=== PATIENT | female | born 1985 | race Caucasian/White ===

== ENCOUNTER 2023-12-05 10:17 | Outpatient (CLI) | payer OTHER, SELFPAY | END 2023-12-05 10:18 | disposition home or self-care (01) | PROVIDERS: PCP Family Medicine; Visit Provider Obstetrics & Gynecology | DX: R63.5 Abnormal weight gain (principal); Z13.29 Encounter for screening for other suspected endocrine disorder | CPT/HCPCS: 80053; 80061; 82306; 84443 ==

== ENCOUNTER 2023-12-17 09:34 | Outpatient (CLI) | payer OTHER, SELFPAY ==
--- NOTE | 2023-12-17 09:45 | MM_ITS ---
Patient: JOVON BLANCA Facility:?[facility] Patient ID:?[id number] Site Patient ID:?[id number]. Site :?1985 Study:?XRay-Breast Bilateral 3D W/CAD-12/17/2023 10:15:24 AM Ordering Physician:?Chela Tse Final Report: DIGITAL DIAGNOSTIC BILATERAL MAMMOGRAM USING TOMOSYNTHESIS AND COMPUTER-AIDED DETECTION RIGHT BREAST ULTRASOUND CLINICAL HISTORY: RIGHT breast pain, lump. COMPARISON: 12/12/2017. TECHNIQUE: Digital BILATERAL mammogram in four projections. Tomosynthesis and CAD utilized. Real-time ultrasound imaging of RIGHT breast with imaging documentation. Scanning was performed by both the technologist and the radiologist. BREAST COMPOSITION: The breasts are heterogeneously dense, which may obscure small masses. FINDINGS: 3D CC/MLO BILATERAL mammogram images submitted. No suspicious masses or architectural distortion. No suspicious calcifications or adenopathy. Targeted RIGHT breast ultrasound performed in the area of palpable concern 6 o`clock 3 cm from the nipple. In this location, there is normal dense fibroglandular tissue without fibrocystic change or mass. Targeted ultrasound to the RIGHT axilla also performed which demonstrates diffuse fatty tissue with normal-sized lymph nodes. No abnormal vascularity. No fluid collection. IMPRESSION: No evidence of malignancy. Lipomatous change within the RIGHT axilla resulting in a palpable and tender area visible on clinical exam. RECOMMENDATIONS: Annual BILATERAL screening mammography. Surgical referral with Dr. Colvin should be considered for further evaluation of the RIGHT axillary lipomatous tissue and consideration of possible excision. Results and recommendations discussed with the patient. BI-RADS Category 2: Benign A lay language report of this examination will be provided to the patient. Dictated by Thiago Bergeron MD @ 12/17/2023 10:35:57 AM jj/Dictated by: Thiago Bergeron MD @ 12/17/2023 10:35:00 AM Signed by:?Thiago Bergeron MD @12/17/2023 11:18:46 AM (Electronic Signature)
--- NOTE | 2023-12-17 10:15 | US_ITS ---
Patient: JOVON BLANCA Facility:?[facility] Patient ID:?[id number] Site Patient ID:?[id number]. Site :?1985 Study:?US-Breast Right DR PHAN TO READ-12/17/2023 10:47:05 AM Ordering Physician:?TUAN CABRERA Final Report: PLEASE SEE DIGITAL DIAGNOSTIC BILATERAL MAMMOGRAM PERFORMED SAME DAY CRL:antwan moncada/Dictated by: Thiago Phan MD @ 12/17/2023 10:47:00 AM Signed by:?Thiago Phan MD @12/17/2023 11:18:48 AM (Electronic Signature)
== END 2023-12-17 09:35 | disposition home or self-care (01) ==
LOC: MAMMO 09:34
PROVIDERS: PCP Family Medicine; Visit Provider Internal Medicine Nephrology
DX: N63.10 Unspecified lump in the right breast, unspecified quadrant (principal)
CPT/HCPCS: 76642; 77066; G0279

== ENCOUNTER 2023-12-30 09:45 | Outpatient (CLI) | payer OTHER, SELFPAY | END 2023-12-30 09:46 | disposition home or self-care (01) | LOC: NFLDREF 01-02 05:42 | PROVIDERS: PCP Family Medicine; Referring Provider Family Medicine; Visit Provider Obstetrics & Gynecology | DX: N92.6 Irregular menstruation, unspecified (principal); G43.009 Migraine without aura, not intractable, without status migrainosus; R63.5 Abnormal weight gain | CPT/HCPCS: 82533; 82670; 83001; 83525; 84144; 84146; 84270; 84402; 84403 ==

== ENCOUNTER 2024-01-05 13:04 | Outpatient (CLI) | payer OTHER, SELFPAY ==
--- NOTE | 2024-01-05 13:00 | MR_ITS ---
Patient: JOVON BLANCA Facility:?[facility] R[facility] Patient ID:?[id number] Site Patient ID:?[id number]. Site :?1985 Study:?MRI-Breast WO/W DOTAREM 15ML-01/05/2024 2:19:34 PM Ordering Physician:SAMIR Final Report: BILATERAL BREAST MRI WITHOUT AND WITH GADOLINIUM, 01/05/2024 CLINICAL HISTORY: 38-year-old with right breast lump at 6 o`clock position 3 cm from the nipple with negative diagnostic workup. INDICATION FOR BREAST MRI: Problem-solving breast MRI. COMPARISON STUDIES: Mammogram 12/17/2023, ultrasound 12/17/2023. CONTRAST: 15 mL Dotarem TECHNIQUE: The patient was positioned prone using a breast coil. Multiple imaging sequences were obtained using 1-1.5 mm thick slices with no gap. The image sequences include T2-weighted STIR in the axial plane, T1-weighted nonfat- saturated gradient echo in the axial plane, pre- and post-contrast T1-weighted FLASH 3D with fat suppression in the axial plane, and T1-weighted FLASH high- resolution 3D with fat suppression in the sagittal plane. Image post-processing was performed on a [employer] workstation. Complex 3D rendering including maximum intensity projections (MIPS) and volumetric renderings were obtained to optimize visualization of the extent of pathology and relationship to the nipple, skin, and chest wall. This aids in determining feasibility of breast conservation surgery. Subtraction, multiplanar reconstruction, mean curve determination, and angiogenesis mapping were also performed. The study was technically adequate. FINDINGS: Amount of Fibroglandular Tissue: Heterogeneous fibroglandular tissue Breast Background Enhancement: Moderate RIGHT/LEFT Breast: There is no suspicious enhancement in either breast. Lymph Nodes: There are no morphologically abnormal axillary lymph nodes. IMPRESSIONS AND RECOMMENDATIONS: No MRI findings for malignancy in either breast. No abnormal-morphology axillary lymph nodes. A few tiny cysts in the breast. Further management should be based clinically. Recommend that the patient start yearly screening mammography at age 42. BI-RADS Category 2: Benign TRINITY MONTOYA M.D. Diagnostic/Breast Radiologist [email or web address] BROOKS/hector D& Transcribed: 12:[address]/Dictated by: Trinity Montoya MD @ 01/07/2024 11:16:00 AM Signed by:Luz Marina Montoya MD @01/07/2024 2:20:57 PM (Electronic Signature)
== END 2024-01-05 13:05 | disposition home or self-care (01) ==
LOC: MRI 13:05
PROVIDERS: PCP Family Medicine; Visit Provider Surgery
DX: N63.10 Unspecified lump in the right breast, unspecified quadrant (principal); R22.31 Localized swelling, mass and lump, right upper limb
CPT/HCPCS: 77049; A9575

== ENCOUNTER 2024-01-21 12:52 | Outpatient (CLI) | payer OTHER, SELFPAY ==
--- NOTE | 2024-01-21 13:00 | MR_ITS ---
Patient: JOVON BLANCA Facility:?[facility] Patient ID:?[id number] Site Patient ID:?[id number]. Site :?1985 Study:?MRI-Spine Cervical WO-01/21/2024 2:28:55 PM Ordering Physician:SAMIR Final Report: INDICATION: Right-sided neck pain. TECHNIQUE: Multiplanar multisequence noncontrast MR images of the cervical spine. COMPARISON: None. FINDINGS: Mild leftward cervical curvature. Slight reversal of the cervical lordosis. Vertebral body heights are maintained. No acute fracture. No T1 hypointense lesions or marrow edema. The cervical cord is normal in signal intensity. C2-3: No spinal canal or neural foraminal narrowing. C3-4: Trace anterolisthesis. No spinal canal or neural foraminal narrowing. C4-5: Trace anterolisthesis. Mild disc height loss. Posterior disc bulge. Minimal spinal canal narrowing. No neural foraminal narrowing. C5-6: No spinal canal or neural foraminal narrowing. C6-7: Shallow posterior disc bulge. Minimal spinal canal narrowing. No neural foraminal narrowing. C7-T1: No spinal canal or neural foraminal narrowing. T1-2: No spinal canal or neural foraminal narrowing. IMPRESSION: Mild multilevel cervical spondylosis without spinal canal or neural foraminal stenosis. Dictated by Dae Valentino MD @ 01/22/2024 11:09:25 AM Signed by:?Dae Valentino MD @01/22/2024 11:09:25 AM (Electronic Signature)
--- NOTE | 2024-01-21 13:45 | MR_ITS ---
Patient: JOVON BLANCA Facility:?[facility] Patient ID:?[id number] Site Patient ID:?[id number] Site :?1985 Study:?MRI-Shoulder Right WO-01/21/2024 2:29:51 PM Ordering Physician:SAMIR Final Report: INDICATION: Shoulder and armpit pain and swelling. COMPARISON: None provided. TECHNIQUE: Axial T1 and PD fat-sat, coronal PD, T2 and PD fat sat and sagittal PD and T2 right shoulder sequences without contrast. FINDINGS: Rotator cuff: Intact with expected caliber and signal. No atrophy or edema in the muscles. Acromioclavicular joint and coracoacromial arch: Flat type 1 acromial undersurface. Acromial distance. Trace fluid in the bursa. Normal AC joint. No clavicular dislocation or fracture. Subcoracoid interval is patent. Biceps labral complex: No obvious labral pathology with intact anchor appropriately located biceps tendon. Glenohumeral joint: Anatomic alignment. Uniform cartilage well maintained. No joint fluid of significance. No capsulitis. Bones and soft tissues: Visualized axilla is unremarkable with a few small benign reactive lymph nodes. Muscle bulk and signal is normal. No fracture or bone lesion. IMPRESSION: Negative MRI of the right shoulder. Dictated by Wily Rasmussen MD @ 01/21/2024 4:02:43 PM Signed by:?Wily Rasmussen MD @01/21/2024 4:02:43 PM (Electronic Signature)
== END 2024-01-21 12:53 | disposition home or self-care (01) ==
LOC: MRI 12:54
PROVIDERS: PCP Family Medicine; Visit Provider Surgery
DX: R29.898 Other symptoms and signs involving the musculoskeletal system (principal); M25.511 Pain in right shoulder; M54.2 Cervicalgia; M47.892 Other spondylosis, cervical region
CPT/HCPCS: 72141; 73221

== ENCOUNTER 2024-03-17 14:55 | Outpatient (CLI) | payer OTHER, SELFPAY ==
--- NOTE | 2024-03-17 15:00 | CRLHL7_ITS ---
For Patients: As a result of the Century Cures Act, medical imaging exams and procedure reports are released immediately into your electronic medical record. You may view this report before your referring provider. If you have questions, please contact your health care provider. INDICATION: Abnormal uterine and vaginal bleeding COMPARISON: none TECHNIQUE: 2D cedillo scale and color Doppler images were acquired of the pelvis using a transabdominal and transvaginal approach. FINDINGS: Sonographic images demonstrate a normal size and smooth outer contour of the uterus. Uterus measures 7.9 cm in length by 4.3 cm in AP diameter by 5.8 cm in transverse dimension. The myometrium has a normal uniform echotexture. The endometrial lining measures 9 mm in composite thickness. The right ovary measures 2.9 x 1.6 x 1.9 cm in size and the left ovary measures 3.9 x 2.2 x 3.0 cm. The ovaries demonstrate normal arterial and venous blood flow on color Doppler analysis. There are no suspicious fluid collections within the cul-de-sac. Simple left ovarian cyst is present measuring 2.2 x 2.0 x 2.0 cm. IMPRESSION: Endometrial thickness 9 millimeters. No endometrial fluid or uterine fibroid. Dictated by Thiago Bergeron MD @ 03/19/2024 6:18:10 AM (Electronically Signed)
== END 2024-03-17 14:56 | disposition home or self-care (01) ==
LOC: US 14:55
PROVIDERS: PCP Family Medicine; Visit Provider Obstetrics & Gynecology
DX: N93.9 Abnormal uterine and vaginal bleeding, unspecified (principal); R93.89 Abnormal findings on diagnostic imaging of other specified body structures
CPT/HCPCS: 76830; 76856

== ENCOUNTER 2025-04-26 10:08 | Outpatient (CLI) | payer BC, SELFPAY | END 2025-04-26 10:09 | disposition home or self-care (01) | PROVIDERS: PCP Family Medicine; Visit Provider Family Medicine | DX: R09.89 Other specified symptoms and signs involving the circulatory and respiratory systems (principal); Z79.899 Other long term (current) drug therapy | CPT/HCPCS: 82306; 86140 ==

== ENCOUNTER 2025-04-28 08:34 | Outpatient (CLI) | payer BC, SELFPAY ==
--- NOTE | 2025-04-28 08:45 | CRLHL7_ITS ---
For Patients: As a result of the Cures Act, medical imaging exams and procedure reports are released immediately into your electronic medical record. You may view this report before your referring provider. If you have questions, please contact your health care provider. DIGITAL DIAGNOSTIC BILATERAL MAMMOGRAM USING TOMOSYNTHESIS AND COMPUTER-AIDED DETECTION RIGHT BREAST ULTRASOUND CLINICAL HISTORY: RIGHT breast lump. COMPARISON: [facility] 12/17/2023, 12/12/2017. PRIOR BREAST MRI 01/05/2024. TECHNIQUE: Digital BILATERAL mammogram in four projections with computer-aided detection. Tomosynthesis was used in this interpretation. Real-time ultrasound imaging of RIGHT breast with imaging documentation. BREAST COMPOSITION: The breasts are heterogeneously dense, which may obscure small masses. FINDINGS: 3D CC/MLO BILATERAL mammogram images submitted. No architectural distortion or suspicious mass. No suspicious calcifications or adenopathy. Targeted RIGHT breast ultrasound performed at 10-11 o`clock 7 cm from the nipple. Clustered microcysts noted at mid depth measuring 13 x 3 x 9 millimeters. IMPRESSION: No suspicious findings. Incidental clustered microcysts RIGHT breast 10-11 o`clock 7 cm from the nipple measuring 13 x 3 x 9 millimeters. No evidence of malignancy. RECOMMENDATIONS: Age-appropriate screening mammography. A lay language report of this examination will be provided to the patient. BI-RADS Category 2: Benign Dictated by Thiago Bergeron MD @ 04/28/2025 10:43:36 AM jj/Dictated by: Thiago Bergeron MD @ 04/28/2025 10:43:00 AM (Electronically Signed)
--- NOTE | 2025-04-28 09:15 | CRLHL7_ITS ---
For Patients: As a result of the Cures Act, medical imaging exams and procedure reports are released immediately into your electronic medical record. You may view this report before your referring provider. If you have questions, please contact your health care provider. SEE DIGITAL DIAGNOSTIC BILATERAL MAMMOGRAM PERFORMED SAME DAY CRL:antwan moncada/Dictated by: Thiago Bergeron MD @ 04/28/2025 10:43:00 AM (Electronically Signed)
== END 2025-04-28 08:35 | disposition home or self-care (01) ==
LOC: MAMMO 08:34
PROVIDERS: PCP Family Medicine; Visit Provider Obstetrics & Gynecology
DX: N63.41 Unspecified lump in right breast, subareolar (principal); N60.01 Solitary cyst of right breast
CPT/HCPCS: 76642; 77066; G0279

== ENCOUNTER 2025-05-04 11:12 | Outpatient (CLI) | payer BC, SELFPAY ==
--- NOTE | 2025-05-04 11:15 | CRLHL7_ITS ---
For Patients: As a result of the Century Cures Act, medical imaging exams and procedure reports are released immediately into your electronic medical record. You may view this report before your referring provider. If you have questions, please contact your health care provider. Indication: Chronic soft tissue inflammation right neck, supraclavicular. Chronic symptoms 4 years. Trigger point injections/Botox injections/physical therapy done. check for lymph nodes Technique: Grayscale and color Doppler ultrasound of the neck performed on the right corresponding to the areas of concern. Comparison: None Findings: No fluid collection or suspicious mass. Normal right submandibular lymph node measures 11 x 5 x 12 millimeters. No abnormal vascularity. Incidental small cyst in the parotid gland. Impression: No suspicious findings. Dictated by Thiago Bergeron MD @ 05/04/2025 12:02:41 PM (Electronically Signed)
== END 2025-05-04 11:13 | disposition home or self-care (01) ==
PROVIDERS: PCP Family Medicine; Visit Provider Family Medicine
DX: R09.89 Other specified symptoms and signs involving the circulatory and respiratory systems (principal)
CPT/HCPCS: 76536

== ENCOUNTER 2025-06-02 16:23 | Outpatient (CLI) | payer BC, SELFPAY ==
[2025-06-04 22:55] LABS: HPV Source Cervical
[2025-06-10 09:39] LABS: Pap Test Screened Manually Done
== END 2025-06-02 16:24 | disposition home or self-care (01) ==
PROVIDERS: PCP Family Medicine; Visit Provider Obstetrics & Gynecology
DX: Z12.4 Encounter for screening for malignant neoplasm of cervix (principal)
CPT/HCPCS: 87624; 87625; 88141; 88142; 88175